=== PATIENT | female | born 1960 | race Caucasian/White ===

== ENCOUNTER 2022-03-28 10:10 | Outpatient (CLI) | payer BC, SELFPAY ==
--- NOTE | 2022-03-28 10:15 | CRLHL7_ITS ---
For Patients: As a result of the Century Cures Act, medical imaging exams and procedure reports are released immediately into your electronic medical record. You may view this report before your referring provider. If you have questions, please contact your health care provider. BILATERAL SCREENING MAMMOGRAM WITH COMPUTER-AIDED DETECTION AND TOMOSYNTHESIS TECHNIQUE: CC and MLO views were obtained. These mammographic images have been obtained using full-field digital technique. These mammographic images were interpreted with the benefit of computer-aided detection. Breast Tomosynthesis was used in this interpretation. COMPARISON FILM: 07/20/20 diagnostic BILATERAL, 06/08/19 diagnostic RIGHT, 06/02/19, 06/02/17. FINDINGS: There are scattered areas of fibroglandular density IMPRESSION: There is no radiographic evidence for malignancy. ASSESSMENT: BI-RADS Category 1: Negative RECOMMENDATION: Routine screening mammogram in 1 year. A lay language report of this examination will be provided to the patient. Rodger Awan M.D. Diagnostic Radiologist [email or web address] MIGUEL/Dictated by: Rodger Awan MD @ 03/28/2022 11:57:00 AM (Electronically Signed)
== END 2022-03-28 10:11 | disposition home or self-care (01) ==
LOC: MAMMO 10:11
PROVIDERS: PCP Family Medicine; Visit Provider Obstetrics & Gynecology
DX: Z12.31 Encounter for screening mammogram for malignant neoplasm of breast (principal)
CPT/HCPCS: 77063; 77067

== ENCOUNTER 2023-05-25 08:20 | Outpatient (CLI) | payer BC, SELFPAY ==
--- NOTE | 2023-05-25 08:45 | CRLHL7_ITS ---
For Patients: As a result of the Century Cures Act, medical imaging exams and procedure reports are released immediately into your electronic medical record. You may view this report before your referring provider. If you have questions, please contact your health care provider. BILATERAL SCREENING MAMMOGRAM WITH COMPUTER-AIDED DETECTION AND TOMOSYNTHESIS TECHNIQUE: CC and MLO views were obtained. These mammographic images have been obtained using full-field digital technique. These mammographic images were interpreted with the benefit of computer-aided detection. Breast tomosynthesis was used in this interpretation. COMPARISON FILM: 05/28/21, 07/20/20, 06/02/19. FINDINGS: There are scattered areas of fibroglandular density. IMPRESSION: There is no radiographic evidence for malignancy. ASSESSMENT: BI-RADS Category 2: Benign RECOMMENDATION: Routine screening mammogram in 1 year. A lay language report of this examination will be provided to the patient. RODGER CARNEY M.D. Diagnostic Radiologist [email or web address] Transcribed: 2:[address]/Dictated by: Rodger Carney MD @ 05/25/2023 10:08:00 AM (Electronically Signed)
== END 2023-05-25 08:21 | disposition home or self-care (01) ==
LOC: MAMMO 08:21
PROVIDERS: PCP Family Medicine; Visit Provider Obstetrics & Gynecology
DX: Z12.31 Encounter for screening mammogram for malignant neoplasm of breast (principal)
CPT/HCPCS: 77063; 77067

== ENCOUNTER 2023-12-21 10:49 | Outpatient (CLI) | payer BC, SELFPAY | END 2023-12-21 10:50 | disposition home or self-care (01) | LOC: NFLDREF 12-22 08:36 | PROVIDERS: PCP Family Medicine; Referring Provider Family Medicine; Visit Provider Obstetrics & Gynecology | DX: R32 Unspecified urinary incontinence (principal) | CPT/HCPCS: 87086 ==

== ENCOUNTER 2024-07-27 10:21 | Outpatient (CLI) | payer OTHER, SELFPAY ==
--- NOTE | 2024-07-27 10:45 | CRLHL7_ITS ---
For Patients: As a result of the Century Cures Act, medical imaging exams and procedure reports are released immediately into your electronic medical record. You may view this report before your referring provider. If you have questions, please contact your health care provider. BILATERAL SCREENING MAMMOGRAM WITH COMPUTER-AIDED DETECTION AND TOMOSYNTHESIS TECHNIQUE: CC and MLO views were obtained. These mammographic images have been obtained using full-field digital technique. These mammographic images were interpreted with the benefit of computer-aided detection. Breast Tomosynthesis was used in this interpretation. COMPARISON FILM: 05/25/23, 03/28/22, 07/20/20. FINDINGS: The breasts are heterogeneously dense, which may obscure small masses. IMPRESSION: There is no radiographic evidence for malignancy. ASSESSMENT: BI-RADS Category 1: Negative RECOMMENDATION: Routine screening mammogram in 1 year. A lay language report of this examination will be provided to the patient. Rodger Awan M.D. Diagnostic Radiologist [email or web address] SP/Dictated by: Rodger Awan MD @ 08/02/2024 11:35:00 AM (Electronically Signed)
== END 2024-07-27 10:22 | disposition home or self-care (01) ==
LOC: MAMMO 10:22
PROVIDERS: Visit Provider Obstetrics & Gynecology
DX: Z12.31 Encounter for screening mammogram for malignant neoplasm of breast (principal); R92.333 Mammographic heterogeneous density, bilateral breasts
CPT/HCPCS: 77063; 77067

== ENCOUNTER 2024-09-16 09:00 | Outpatient (RCR) | payer OTHER, SELFPAY ==
--- NOTE | 2024-03-28 10:06 | ONC.PROVNOTE ---
[facility] Provider Note Clinic Note Narrative: Treatment plan: Entyvio Ms. Milton follows at [facility] of G[facility]ology with Dr. Pilo Thorpe for Crohn's disease. Please see scanned office visit note by Dr. Thorpe 02/12/2023 and nurse call note 03/14/24 by Su Cyr RN for full Crohn's history and treatment plan. Our clinic received request for Ms. Milton to receive her entyvio 300mg IV q 8 weeks with solu-medrol 40 mg IVP prior at our clinic locally. She has been receiving this treatment since 2012 with excellent control of her Crohn's symptoms. She is due for repeat colonoscopy in 2024 or 2025 per office note. Annual skin assessments as per Dr. Thorpe and Gi team at [place]. 06/04/2018 External quantiferon - TB Gold resulted negative. 02/11/2023 lab work at [facility] hgb 14.3 leukocytes 5.9 platelets 358,000 CMP WNL, unremarkable. 09/08/23 TSH 2.5. I have placed orders for entyvio treatment plan 300mg IV every 8 weeks for 6 doses, with premed solumedrol 40 mg IV based on treatment recommendation letter from Dr. Thorpe for Ms. Milton.
--- NOTE | 2024-03-28 10:25 | PC.NURSE ---
Diagnosis: Crohn's Disease
--- NOTE | 2024-03-28 10:28 | URNOTE ---
Addendum entered by Adriana Tadeo RN 04/04/24 14:53: Called [employer] on behalf of [employer] re: Entyvio is okay to give 7 days before or after the 56 day frequency that is approved. 1 of 4 dose has been administered on 04/01/2024, Auth#[id number], date range: 03/31/2024 to 09/26/2024. Ref#[id number] Rep. Rosie PaizSantiago at [phone]. Original Note: Request received for authorization for Vedolizumab (Entyvio) (J3380). Prior authorization is approved per [employer] on behalf of [employer] for Vedolizumab (Entyvio) (J3380) maintenance dose: 300.00mg, Frequency:56 days, for total doses approved: 4, Auth#[id number], date range: 03/31/2024 to 09/26/2024.
[2024-04-01 11:31] VITALS: BP 128/83; PULSE 62; RESP 16; TEMP 36.6; O2SAT 99
[2024-04-01] MEDS: METHYLPREDNISOLONE SOD SUCC 40 MG/ML IVP (12:02)
[2024-04-01] MEDS: VEDOLIZUMAB 300 MG, TUBING SECONDARY 1 EACH in 0.9 % SODIUM CHLORIDE 250 ml 250 ML 510 MG IVPB (12:42)
--- NOTE | 2024-05-18 08:10 | ONC.NURNOTE ---
Patient called stating that her surgery at [place] was postponed and she would like to go back to her originally scheduled date of May 27 for her infusion. This was changed in our schedule.
[2024-05-27 08:54] VITALS: BP 122/80; PULSE 60; RESP 16; TEMP 36.2; O2SAT 96
[2024-05-27] MEDS: METHYLPREDNISOLONE SOD SUCC 40 MG/ML IVP (09:40)
[2024-05-27] MEDS: VEDOLIZUMAB 300 MG, TUBING SECONDARY 1 EACH in 0.9 % SODIUM CHLORIDE 250 ml 250 ML 510 MG IVPB (09:59)
[2024-05-27] MEDS: 0.9 % SODIUM CHLORIDE 500 ML IV (09:59)
[2024-05-27] MEDS: SODIUM CHLORIDE 0.9 % (FLUSH) 10 ML SYRINGE IVF (10:00)
[2024-07-22 09:02] VITALS: BP 111/76; PULSE 66; RESP 16; TEMP 36.1; O2SAT 96
[2024-07-22] MEDS: METHYLPREDNISOLONE SOD SUCC 40 MG/ML IVP (09:27)
[2024-07-22] MEDS: SODIUM CHLORIDE 0.9 % (FLUSH) 10 ML SYRINGE IVF (09:37)
[2024-07-22] MEDS: 0.9 % SODIUM CHLORIDE 250 ml IV (09:39)
[2024-07-22] MEDS: VEDOLIZUMAB 300 MG, TUBING SECONDARY 1 EACH in 0.9 % SODIUM CHLORIDE 250 ml 250 ML 510 MG IVPB (09:59)
[2024-09-16 08:53] VITALS: BP 112/71; PULSE 57; RESP 16; TEMP 35.5; O2SAT 96
[2024-09-16] MEDS: SODIUM CHLORIDE 0.9 % (FLUSH) 10 ML SYRINGE IVF (09:30)
[2024-09-16] MEDS: METHYLPREDNISOLONE SOD SUCC 40 MG/ML IVP (09:30)
[2024-09-16] MEDS: 0.9 % SODIUM CHLORIDE 250 ml IV (09:30)
[2024-09-16] MEDS: VEDOLIZUMAB 300 MG, TUBING SECONDARY 1 EACH in 0.9 % SODIUM CHLORIDE 250 ml 250 ML 510 MG IVPB (09:50)
== END 2024-09-28 23:59 | disposition home or self-care (01) ==
LOC: CCIC 09:00
PROVIDERS: PCP Family Medicine; Referring Provider Family Medicine; Visit Provider Clinical Nurse Specialist
DX: K50.90 Crohn's disease, unspecified, without complications (principal)
CPT/HCPCS: 96365; 96375; 96376; J2919; J3380; J7030; J7050

== ENCOUNTER 2025-02-07 14:37 | Outpatient (CLI) | payer OTHER, SELFPAY ==
[2025-02-10 22:59] LABS: HPV Source Cervix
[2025-02-13 20:07] LABS: Pap Test Digital Imaging Done
== END 2025-02-07 14:38 | disposition home or self-care (01) ==
PROVIDERS: PCP Family Medicine; Visit Provider Obstetrics & Gynecology
DX: Z12.4 Encounter for screening for malignant neoplasm of cervix (principal)
CPT/HCPCS: 87624; 87625; 88141; 88142; 88175

== ENCOUNTER 2025-03-27 13:59 | Outpatient (CLI) | payer OTHER, SELFPAY ==
--- NOTE | 2025-04-11 09:28 | P.SLS_ITS ---
Sleep Study Details Details Interpreting Provider: Amy Date of Sleep Study: 03/27/25 Sleep Study Details: STUDY TYPE:? Home unattended ? BMI:? 26.62 ORDERING PROVIDER: Jessica INDICATION:? Concern for sleep apnea ? SLEEP SUMMARY:? 497 minutes monitored RESPIRATORY SUMMARY:? AHI 16.7 per rule 1A, 8.1 per CMS guideline Low oxygen 84 27.8% of study oxygen less than 90% Snoring 97.5% PERIODIC LIMB MOVEMENTS OF SLEEP:? Not recorded CARDIAC:? Range 45-91, mean 56.8 beats per minute IMPRESSION:? Mild to moderate obstructive sleep apnea with significant de saturations RECOMMENDATION: Treatment options include CPAP dental appliance and/or airway expansion surgery. Once effective therapy is established overnight oximetry is recommended.
== END 2025-03-27 14:00 | disposition home or self-care (01) ==
LOC: SLEEP 14:00
PROVIDERS: PCP Family Medicine; Visit Provider Obstetrics & Gynecology
DX: G47.33 Obstructive sleep apnea (adult) (pediatric) (principal)
CPT/HCPCS: 95806